=== PATIENT | female | born 1950 | race Hispanic/Latino ===

== ENCOUNTER 2018-01-07 11:01 | Emergency (ER) | payer OTHER, MEDICARE ==
[~2018-01-07 11:01] MED LIST: ALBU8.5H8 IH; ASPI-555 PO; ATOR20TA PO; INSLAN SQ; PANT40TA25 PO; stool softner; symbicort
[2018-01-07 11:39] LABS: BASOPHILS % (AUTO) 0.8 % (0.0-5.0); EOSINOPHILS % (AUTO) 0.7 % (0.0-8.0); HEMATOCRIT 41.4 % (36-48); LYMPHOCYTES % (AUTO) 25.8 % (21.0-51.0); MEAN CORPUSCULAR HEMOGLOBIN 26.8 pg (27.0-33.0); MEAN CORPUSCULAR HGB CONC 32.7 g/dL (32.0-36.0); MEAN CORPUSCULAR VOLUME 81.8 fL (79-99); MONOCYTES % (AUTO) 6.7 % (3.0-13.0); PLATELET COUNT (AUTO) 236 K/uL (130-400); RED BLOOD CELL COUNT(AUTO) 5.06 MIL/uL (4.00-5.50); RED CELL DISTRIBUTION WIDTH 16.2 % (11.0-15.5); WHITE BLOOD COUNT (AUTO) 10.8 K/uL (4.8-10.8)
[2018-01-07 12:02] LABS: ALBUMIN 3.4 g/dL (3.5-5.0); BILIRUBIN,TOTAL 0.4 mg/dL (0.2-1.0); CREATINE KINASE MB 0.8 ng/mL (0.5-3.6); CREATININE 0.8 mg/dL (0.5-1.5); POTASSIUM 3.6 mmol/L (3.5-5.1); TOTAL PROTEIN, SERUM 7.7 g/dL (6.0-8.3)
== END 2018-01-07 18:23 | disposition home or self-care (01) ==
LOC: EDH 11:01
DX: R07.9 Chest pain, unspecified (principal); R55 Syncope and collapse; E11.9 Type 2 diabetes mellitus without complications; E78.5 Hyperlipidemia, unspecified; K21.9 Gastro-esophageal reflux disease without esophagitis; I10 Essential (primary) hypertension; J45.909 Unspecified asthma, uncomplicated
CPT/HCPCS: 36415; 80053; 82550; 82553; 84484; 85025; 85378; 93005

== ENCOUNTER → 2018-12-20 | Outpatient (CLI) | payer OTHER, MEDICARE ==
[~2018-12-20] MED LIST changes: +ACET-2900 PO; -ALBU8.5H8 IH; +ALBUTEROL SULFATE IH; +ATOR10TA69 PO; -ATOR20TA PO; +CAND32TA9 PO; +DOCU100T PO; +FLUT1AER IH; -INSLAN SQ; +LATA7.5D OP; +OMEP40CA37 PO; -PANT40TA25 PO; -stool softner; -symbicort
== END | disposition home or self-care (01) ==
LOC: SHCH 12:34
PROVIDERS: ATTEND Internal Medicine Cardiovascular Disease
DX: I35.8 Other nonrheumatic aortic valve disorders (principal); I11.9 Hypertensive heart disease without heart failure
CPT/HCPCS: 93306

== ENCOUNTER → 2018-12-24 | Outpatient (CLI) | payer OTHER, MEDICARE ==
[~2018-12-24] VITALS: Ht 160 cm; Wt 69.9 kg
[~2018-12-24] MED LIST changes: +REGADENOSON 0.4 MG/5 ML PF SYG IVP SCH
== END | disposition home or self-care (01) ==
LOC: SHCH 07:35
PROVIDERS: ATTEND Internal Medicine Cardiovascular Disease
DX: R06.00 Dyspnea, unspecified (principal); R07.9 Chest pain, unspecified
CPT/HCPCS: 78452; 93017; 96374; A9500 ×2; J2785

== ENCOUNTER 2019-01-28 07:31 | Day surgery (SDC) | payer OTHER, MEDICARE ==
[2019-01-24 13:27] LABS: BASOPHILS % (AUTO) 0.9 % (0.0-5.0); EOSINOPHILS % (AUTO) 1.4 % (0.0-8.0); HEMATOCRIT 41.1 % (36-48); MEAN CORPUSCULAR HEMOGLOBIN 28.7 pg (27.0-33.0); MEAN CORPUSCULAR HGB CONC 32.4 g/dL (32.0-36.0); MEAN CORPUSCULAR VOLUME 88.4 fL (79-99); NEUTROPHILS % (AUTO) 70.7 % (40.0-77.0); PLATELET COUNT (AUTO) 215 K/uL (130-400); RED BLOOD CELL COUNT(AUTO) 4.65 MIL/uL (4.00-5.50); RED CELL DISTRIBUTION WIDTH 14.6 % (11.0-15.5)
[2019-01-24 13:30] LABS: APPEARANCE,URINE Cloudy (CLEAR); BILIRUBIN,URINE Negative (NEGATIVE); COLOR,URINE Yellow (YELLOW); GLUCOSE, URINE (UA) 250 mg/dL (NEGATIVE); KETONES,URINE Negative (NEGATIVE); LEUKOCYTE ESTERASE ,URINE Negative (NEGATIVE); NITRATE,URINE Negative (NEGATIVE); OCCULT BLOOD,URINE Negative (NEGATIVE); PROTEIN,URINE Negative (NEGATIVE)
[2019-01-24 13:31] VITALS: BP 122/58
[2019-01-24 13:38] LABS: CREATININE 0.9 mg/dL (0.5-1.5); POTASSIUM 4.4 mmol/L (3.5-5.1)
[2019-01-24 13:41] LABS: INR 0.97 (0.85-1.15); PROTHROMBIN TIME 10.2 SEC (9.6-11.6)
[2019-01-24 13:52] LABS: RBC,URINE 0-1 /HPF (0-1); WBC,URINE 0-1 /HPF (0-1)
[2019-01-24 13:53] LABS: BACTERIA,URINE Moderate /HPF (None Seen)
--- NOTE | 2019-01-27 12:05 | NUR ---
LABS ABNORMAL WBC REPORTED TO TOBIAS BROOKS, NO FURTHER ORDERS GIVEN. OK TO PROCEED WITH PROCEDURE
[2019-01-28] VITALS (15 sets, daily range): BP systolic 101–133; BP diastolic 43–83
[~2019-01-28] VITALS: Ht 157.5 cm; Wt 69.2 kg
[~2019-01-28 07:31] MED LIST changes: -ACET-2900 PO; -ALBUTEROL SULFATE IH; +DILT180C51 PO; -DOCU100T PO; -FLUT1AER IH; +INSLAN SQ; -LATA7.5D OP; -OMEP40CA37 PO; +RANI300C PO; -REGADENOSON 0.4 MG/5 ML PF SYG IVP SCH; +SODIUM CHLORIDE 0.9% 500ML 500 ML IV SCH; +TICA90TA PO
[2019-01-28] MEDS ORDERED: SODIUM CHLORIDE 0.9% 1000ML 1,000 ML IV ONE (07:50)
[2019-01-28] MEDS ORDERED: PANT20TA PO (09:08)
[2019-01-28] MEDS ORDERED: FLUT1AER IH ×2 (09:10→09:24)
[2019-01-28] MEDS ORDERED: AUD IH (09:29)
[2019-01-28] MEDS ORDERED: SODIUM BICARB 50MEQ 50ML VIAL ONE (11:55)
[2019-01-28] MEDS ORDERED: LIDOCAINE HCL 2% 20ML ONE (11:55)
[2019-01-28] MEDS ORDERED: NITROGLYCERIN 5 MG/ML 10 ML VIAL IV ONE (11:55)
[2019-01-28] MEDS ORDERED: IOHEXOL-350 50ML VIAL IV ONE (11:55)
[2019-01-28] MEDS ORDERED: IOHEXOL 350 MG/ML 100ML INFUS..BTL IV ONE (11:55)
[2019-01-28 12:33] LABS: APPEARANCE,URINE Clear (CLEAR); BILIRUBIN,URINE Negative (NEGATIVE); COLOR,URINE Yellow (YELLOW); GLUCOSE, URINE (UA) Negative (NEGATIVE); KETONES,URINE Negative (NEGATIVE); LEUKOCYTE ESTERASE ,URINE Negative (NEGATIVE); NITRATE,URINE Negative (NEGATIVE); OCCULT BLOOD,URINE Negative (NEGATIVE); PROTEIN,URINE Negative (NEGATIVE)
[2019-01-28] MEDS ORDERED: MIDAZOLAM HCL 1 MG/ML 2ML VIAL ONE (12:58)
[2019-01-28] MEDS ORDERED: MEPERIDINE-PF 25 MG/ML SYG ONE (12:58)
[2019-01-28] MEDS ORDERED: LEVOFLOXACIN 250 MG/D5W 50ML 50 ML IV STA (13:11)
[2019-01-28] MEDS ORDERED: SODIUM CHLORIDE 0.9% 1000ML 1,000 ML IV SCH (13:12)
[2019-01-28] MEDS ORDERED: GLUCAGON 1MG KIT 1 MG ML IM PRN (13:15)
[2019-01-28] MEDS ORDERED: DEXTROSE 50%-WATER 50 ML DISP.SYRIN IV PRN (13:15)
[2019-01-28] MEDS ORDERED: INSULIN HUMULIN R 100 UNIT/ML 3ML SQ SCH (16:30)
--- NOTE | 2019-01-28 17:30 | NUR ---
Pt asked for a sandwich. Blood sugar checked prior to eating. Pt's blood sugar noted to be 180. According to sliding scale pt was to receive 2 units of insulin. SPt stated they did not want the insulin but would take their Lantus this evening at home.
--- NOTE | 2019-01-28 18:20 | NUR ---
Pt discharged home, tolerating fluids/solids well, voided large amount prior to discharge, ambulating well. Pt denies any severe pain, nausea or dizziness. Prescription for antibiotic given to pt. Unable to give discharge instructions with spouse present as pt requested he not be called in. Pt denies any further questions. Site to right groin remains soft, non-tender s any evidence of bleeding.
== END 2019-01-28 18:20 | disposition home or self-care (01) ==
LOC: DAH 07:31
PROVIDERS: ATTEND Internal Medicine Cardiovascular Disease
DX: I25.118 Atherosclerotic heart disease of native coronary artery with other forms of angina pectoris (principal); E78.5 Hyperlipidemia, unspecified; E11.9 Type 2 diabetes mellitus without complications; I10 Essential (primary) hypertension; K21.9 Gastro-esophageal reflux disease without esophagitis; Z79.82 Long term (current) use of aspirin; Z79.899 Other long term (current) drug therapy; Z79.84 Long term (current) use of oral hypoglycemic drugs; Z79.4 Long term (current) use of insulin; Z95.5 Presence of coronary angioplasty implant and graft; Z90.49 Acquired absence of other specified parts of digestive tract; Z98.890 Other specified postprocedural states; Z82.49 Family history of ischemic heart disease and other diseases of the circulatory system; Z82.3 Family history of stroke; Z79.01 Long term (current) use of anticoagulants
CPT/HCPCS: 36415; 71045; 80048; 81001; 81003; 82948; 85025; 85610; 85730; 87088; 93005; 93458; 99156; A4606; C1760; C1894; J1644; J1956; J2175; J2250; J3490; J7030; Q9967

== ENCOUNTER 2019-03-17 05:27 | Day surgery (SDC) | payer OTHER, MEDICARE ==
[2019-03-15 07:49] VITALS: BP 116/57
[~2019-03-17] VITALS: Ht 160 cm; Wt 68.0 kg
[~2019-03-17 05:27] MED LIST changes: +FLUT1AER IH; +PANT20TA PO; -RANI300C PO; -SODIUM CHLORIDE 0.9% 500ML 500 ML IV SCH
[2019-03-17] MEDS ORDERED: SODIUM CHLORIDE 0.9% 1000ML 1,000 ML IV ONE (05:41)
[2019-03-17 06:16] VITALS: BP 142/72
--- NOTE | 2019-03-17 06:25 | NUR ---
NURSING PER PT SHE WAS GIVEN INSTRUCTIONS BY MD OFFICE AND NURSE TO STOP BRILINTA SO SHE STOPPED ON 03/13/19. NOTIFIED NANCY GREEN RN Addendum: 03/17/19 at 0628 by ABDOULAYE ELAINE RN Amended: Links added.
[2019-03-17] MEDS ORDERED: PROPOFOL 1000 MG/100 ML 100 ML IV ONE (07:07)
[2019-03-17] MEDS ORDERED: LIDOCAINE HCL-MPF 2% 5ML VIAL ONE (07:07)
[2019-03-17 07:44] VITALS: BP 104/49
[2019-03-17 07:49] VITALS: BP 124/52
[2019-03-17 07:54] VITALS: BP 131/55
[2019-03-17 07:59] VITALS: BP 128/55
--- NOTE | 2019-03-17 08:15 | NUR ---
dc pt dc home via wc, no distress noted. denied any pain or discomforts accompanied by family,
== END 2019-03-17 08:15 | disposition home or self-care (01) ==
LOC: DAH 05:27 → ENDO 05:27
PROVIDERS: ATTEND Internal Medicine
DX: K63.5 Polyp of colon (principal); K62.1 Rectal polyp; K44.9 Diaphragmatic hernia without obstruction or gangrene; K31.89 Other diseases of stomach and duodenum; K31.7 Polyp of stomach and duodenum; K64.0 First degree hemorrhoids; K57.30 Diverticulosis of large intestine without perforation or abscess without bleeding; I25.10 Atherosclerotic heart disease of native coronary artery without angina pectoris; I10 Essential (primary) hypertension; E78.00 Pure hypercholesterolemia, unspecified; F41.9 Anxiety disorder, unspecified; M19.90 Unspecified osteoarthritis, unspecified site; E11.9 Type 2 diabetes mellitus without complications; J45.909 Unspecified asthma, uncomplicated; K59.01 Slow transit constipation; Z86.010 Personal history of colon polyps; Z79.4 Long term (current) use of insulin; Z79.899 Other long term (current) drug therapy; Z79.82 Long term (current) use of aspirin; Z95.818 Presence of other cardiac implants and grafts; Z98.890 Other specified postprocedural states; Z82.49 Family history of ischemic heart disease and other diseases of the circulatory system; Z83.3 Family history of diabetes mellitus
CPT/HCPCS: 43239; 45380; 45385; 82948 ×2; 88305; A4606; J2704; J3490; J7030

== ENCOUNTER → 2019-11-12 | Outpatient (CLI) | payer OTHER, MEDICARE | END | disposition home or self-care (01) | LOC: SHCH 10:35 | PROVIDERS: ATTEND Internal Medicine Cardiovascular Disease | DX: R09.89 Other specified symptoms and signs involving the circulatory and respiratory systems (principal) | CPT/HCPCS: 93880 ==

== ENCOUNTER → 2020-10-13 | Outpatient (CLI) | payer OTHER, MEDICARE ==
[~2020-10-13] MED LIST changes: -ASPI-555 PO; +ASPI-556 PO
== END | disposition home or self-care (01) ==
LOC: SHCH 13:59
PROVIDERS: ATTEND Internal Medicine Cardiovascular Disease
DX: R01.1 Cardiac murmur, unspecified (principal); I10 Essential (primary) hypertension
CPT/HCPCS: 93306; 93356

== ENCOUNTER 2021-12-20 11:13 | Emergency (ER) | payer OTHER, MEDICARE ==
[~2021-12-20] VITALS: Ht 160 cm; Wt 66.7 kg
[~2021-12-20 11:13] MED LIST changes: +CAND32TA22 PO; -CAND32TA9 PO
[2021-12-20 12:46] LABS: BASOPHILS % (AUTO) 0.8 % (0.0-5.0); EOSINOPHILS % (AUTO) 1.6 % (0.0-8.0); HEMATOCRIT 41.4 % (36-48); LYMPHOCYTES % (AUTO) 19.2 % (21.0-51.0); MEAN CORPUSCULAR HEMOGLOBIN 29.3 pg (27.0-33.0); MEAN CORPUSCULAR HGB CONC 33.1 g/dL (32.0-36.0); MEAN CORPUSCULAR VOLUME 88.7 fL (79-99); MONOCYTES % (AUTO) 6.2 % (3.0-13.0); NEUTROPHILS % (AUTO) 71.8 % (40.0-77.0); PLATELET COUNT (AUTO) 204 K/uL (130-400); RED BLOOD CELL COUNT(AUTO) 4.67 MIL/uL (4.00-5.50); RED CELL DISTRIBUTION WIDTH 13.1 % (11.0-15.5)
[2021-12-20 13:02] LABS: CREATININE 0.8 mg/dL (0.5-1.5); POTASSIUM 3.9 mmol/L (3.5-5.1)
[2021-12-20 13:05] LABS: ALBUMIN 3.6 g/dL (3.5-5.0); BILIRUBIN,TOTAL 0.3 mg/dL (0.2-1.0); TOTAL PROTEIN, SERUM 7.7 g/dL (6.0-8.3)
[2021-12-20 13:13] LABS: APPEARANCE,URINE Clear (CLEAR); BILIRUBIN,URINE Negative (NEGATIVE); COLOR,URINE Yellow (YELLOW); GLUCOSE, URINE (UA) 250 mg/dL (NEGATIVE); KETONES,URINE Negative (NEGATIVE); LEUKOCYTE ESTERASE ,URINE Small (NEGATIVE); NITRATE,URINE Negative (NEGATIVE); OCCULT BLOOD,URINE Negative (NEGATIVE); PH,URINE 5.5 (5.0-8.0); PROTEIN,URINE Negative (NEGATIVE)
[2021-12-20 13:19] LABS: B-TYPE NATRIURETIC PEPTIDE 19 pg/mL (0-100)
[2021-12-20 13:20] LABS: BACTERIA,URINE Rare /HPF (None Seen); RBC,URINE 0-1 /HPF (0-1); SQUAMOUS EPITHELIAL CELL,UR Few /HPF (0-2)
[2021-12-20] MEDS ORDERED: ACETAMINOPHEN 500 MG TABLET PO ONE (13:30)
[2021-12-20] MEDS ORDERED: ASPIRIN 81 MG EC TAB PO ONE (13:30)
[2021-12-20 14:50] VITALS: BP 128/50
[2021-12-21] MEDS ORDERED: PANT40GR PO (00:02)
[2021-12-21] MEDS ORDERED: CAND32TA22 PO (00:02)
[2021-12-21] MEDS ORDERED: DICY10CA13 PO (00:02)
[2021-12-21] MEDS ORDERED: INSU100V37 SQ (05:21)
[2021-12-21] MEDS ORDERED: FLUT1AER IH (05:21)
== END 2021-12-20 14:51 | disposition home or self-care (01) ==
LOC: EDH 11:13
DX: R07.89 Other chest pain (principal); J45.909 Unspecified asthma, uncomplicated; I25.10 Atherosclerotic heart disease of native coronary artery without angina pectoris; E11.9 Type 2 diabetes mellitus without complications; I10 Essential (primary) hypertension; Z79.899 Other long term (current) drug therapy; Z79.4 Long term (current) use of insulin; Z79.82 Long term (current) use of aspirin; Z90.49 Acquired absence of other specified parts of digestive tract; Z98.890 Other specified postprocedural states
CPT/HCPCS: 36415; 71045; 80053; 81001; 82948; 83880; 84484; 85025; 85378; 93005

== ENCOUNTER 2022-04-19 09:48 | Emergency (ER) | payer MEDICARE, OTHER ==
[~2022-04-19] VITALS: Ht 160 cm; Wt 67.6 kg
[~2022-04-19 09:48] MED LIST changes: +DICY10CA13 PO; -INSLAN SQ; +INSU100V37 SQ; -PANT20TA PO; +PANT40GR PO
[2022-04-19 10:18] LABS: BASOPHILS % (AUTO) 0.9 % (0.0-5.0); EOSINOPHILS % (AUTO) 1.5 % (0.0-8.0); HEMATOCRIT 38.2 % (36-48); LYMPHOCYTES % (AUTO) 21.3 % (21.0-51.0); MEAN CORPUSCULAR HEMOGLOBIN 29.8 pg (27.0-33.0); MEAN CORPUSCULAR HGB CONC 34.3 g/dL (32.0-36.0); MEAN CORPUSCULAR VOLUME 86.8 fL (79-99); MONOCYTES % (AUTO) 7.7 % (3.0-13.0); NEUTROPHILS % (AUTO) 68.1 % (40.0-77.0); PLATELET COUNT (AUTO) 206 K/uL (130-400); RED CELL DISTRIBUTION WIDTH 12.8 % (11.0-15.5); WHITE BLOOD COUNT (AUTO) 7.9 K/uL (4.8-10.8)
[2022-04-19 10:30] LABS: CREATININE 0.8 mg/dL (0.5-1.5); POTASSIUM 3.6 mmol/L (3.5-5.1)
[2022-04-19 10:35] LABS: ALBUMIN 3.2 g/dL (3.5-5.0); TOTAL PROTEIN, SERUM 6.8 g/dL (6.0-8.3)
[2022-04-19] MEDS ORDERED: KETOROLAC 30MG VIAL (30MG/ML) IVP STA (10:37)
[2022-04-19 10:54] LABS: APPEARANCE,URINE CLEAR (CLEAR); BILIRUBIN,URINE NEGATIVE (NEGATIVE); COLOR,URINE LIGHT-YELLOW (YELLOW); GLUCOSE, URINE (UA) >=1000 mg/dL (NEGATIVE); KETONES,URINE NEGATIVE (NEGATIVE); LEUKOCYTE ESTERASE ,URINE NEGATIVE Leu/uL (NEGATIVE); NITRATE,URINE NEGATIVE (NEGATIVE); OCCULT BLOOD,URINE NEGATIVE (NEGATIVE); PROTEIN,URINE NEGATIVE (NEGATIVE); UROBILINOGEN,URINE 0.2 mg/dL (0.2-1.0)
[2022-04-19 10:56] LABS: BACTERIA,URINE RARE /HPF (None Seen); MUCUS,URINE RARE LPF (None Seen); RBC,URINE 0-1 /HPF (0-1); SQUAMOUS EPITHELIAL CELL,UR FEW /HPF (0-2); WBC,URINE 0-1 /HPF (0-1)
[2022-04-19 11:33] VITALS: BP 110/54
== END 2022-04-19 12:00 | disposition home or self-care (01) ==
LOC: EDH 09:48
DX: M94.0 Chondrocostal junction syndrome [Tietze] (principal); E11.9 Type 2 diabetes mellitus without complications; I10 Essential (primary) hypertension; J45.909 Unspecified asthma, uncomplicated; Z79.4 Long term (current) use of insulin; Z79.51 Long term (current) use of inhaled steroids; Z79.82 Long term (current) use of aspirin; Z90.49 Acquired absence of other specified parts of digestive tract; Z95.5 Presence of coronary angioplasty implant and graft
CPT/HCPCS: 99285; 96374; 71045; 84484; 80053; 83880; 85025; 81001; 36415; 93005; J1885

== ENCOUNTER → 2023-09-26 | Outpatient (CLI) | payer OTHER ==
[~2023-09-26] MED LIST changes: -DICY10CA13 PO; +DICY10CA2 PO
== END | disposition home or self-care (01) ==
LOC: SHCH 09:30
PROVIDERS: ATTEND Internal Medicine Cardiovascular Disease
DX: I25.119 Atherosclerotic heart disease of native coronary artery with unspecified angina pectoris (principal)
CPT/HCPCS: 93306

== ENCOUNTER → 2023-10-01 | Outpatient (CLI) | payer OTHER ==
[2023-10-01] MEDS: REGADENOSON 0.4 MG/5 ML PF SYG IVP ONE (14:46)
== END | disposition home or self-care (01) ==
LOC: SHCH 07:35
PROVIDERS: ATTEND Internal Medicine Cardiovascular Disease
DX: I25.119 Atherosclerotic heart disease of native coronary artery with unspecified angina pectoris (principal)
CPT/HCPCS: 78452; 93017; J2785; A9500 ×2; 96374

== ENCOUNTER → 2023-11-20 | Outpatient (CLI) | payer OTHER | END | disposition home or self-care (01) | LOC: RAH 13:05 | PROVIDERS: ATTEND Family Medicine | DX: Z13.820 Encounter for screening for osteoporosis (principal); M85.89 Other specified disorders of bone density and structure, multiple sites | CPT/HCPCS: 77080 ==

== ENCOUNTER → 2024-02-15 | Outpatient (CLI) | payer OTHER, MEDICARE | END | disposition home or self-care (01) | LOC: RAH 09:48 | PROVIDERS: ATTEND Family Medicine | DX: N28.1 Cyst of kidney, acquired (principal); R10.13 Epigastric pain; Z90.49 Acquired absence of other specified parts of digestive tract | CPT/HCPCS: 76700 ==

== ENCOUNTER → 2024-08-11 | Outpatient (CLI) | payer OTHER, MEDICARE ==
--- NOTE | 2024-08-14 09:42 | HMCSR ---
APPROVED REPORT Laterality: Bilateral Indications i65.23 Doppler Spectral Velocity Analysis PSV / EDVPSV / EDV ECA (R) 113 / cm/sECA (L) 105 / cm/s dICA (R) 74 / 10 cm/sdICA (L) 68 / 14 cm/s Payton (R) 91 / 20 cm/smICA (L) 85 / 19 cm/s pICA (R) 74 / 15 cm/spICA (L) 73 / 15 cm/s dCCA (R) 74 / 14 cm/sdCCA (L) 74 / 10 cm/s mCCA (R) 93 / 13 cm/smCCA (L) 97 / 11 cm/s pCCA (R) 91 / 11 cm/spCCA (L) 141 / 15 cm/s Vert (R) 56 / cm/sVert (L) 51 / cm/s Subl. (R) 162 / cm/sSubl. (L) 209 / cm/s ICA/CCA 0.98ICA/CCA 0.60 Technologist Impression Minimal plaque noted in the bilateral carotids, without hemodynamic significance. Bilateral vertebral arteries appear antegrade. Conclusion Minimal plaque noted in the bilateral carotids, without hemodynamic significance. Bilateral vertebral arteries appear antegrade. Conclusion Minimal plaque noted in the bilateral carotids, without hemodynamic significance. Bilateral vertebral arteries appear antegrade.
== END | disposition home or self-care (01) ==
LOC: SHCH 12:12
PROVIDERS: ATTEND Internal Medicine Cardiovascular Disease
DX: I65.23 Occlusion and stenosis of bilateral carotid arteries (principal)
CPT/HCPCS: 93880

== ENCOUNTER 2024-11-17 14:45 | Emergency (ER) | payer OTHER, MEDICARE ==
[~2024-11-17] VITALS: Ht 160 cm; Wt 63.0 kg
[~2024-11-17 14:45] MED LIST changes: +DICY-20 PO; -DICY10CA2 PO
[2024-11-17 14:53] VITALS: TEMP 99.1
--- NOTE | 2024-11-17 14:55 | ERN ---
ED Note History of Present Illness Stated Complaint: PALPATATIONS, ARM PAIN Chief Complaint: Palpitations Time Seen by MD: 14:47 Dictation: PATIENT IS A 74-YEAR-OLD FEMALE COMING IN TODAY WITH COMPLAINTS OF BENDING OVER APPROXIMATE 30 MINUTES PRIOR TO ARRIVAL AND STATES HER HEART STARTED RACING REAL FAST. SHE STATES SHE WAS HAVING SOME PALPITATIONS IN HER THROAT. NO SHORTNESS A BREATH NO ARM PAIN NO JAW PAIN NO BACK PAIN. SHE STATES SHE HAS A HISTORY OF PALPITATIONS, CARDIAC STENTS X2, PATIENT OF . NO PAIN OR PRESSURE AT THIS TIME. Allergies: Coded Allergies: No Known Drug Allergies (Unverified Allergy, Unknown, 12/22/13) Home Meds Active Scripts Magnesium Oxide/Mag Aa Chelate (Magnesium 300 mg Capsule) 300 Mg Capsule, 300 MG PO DAILY for 10 Days, #10 CAP 0 Refills Prov:PADMINI BARRETO EXTRUDER OPERATOR MULTIPLE 11/17/24 Reported Medications Fluticasone/Vilanterol (Breo Ellipta 100-25 Mcg INH) 1 Each Aer.pow.ba, 1 EACH IH DAILY 12/21/21 Insulin Degludec (Tresiba) 100 Unit/1 Ml Vial, 50 UNIT SQ DAILY, VIAL 12/21/21 Candesartan Cilexetil (Candesartan Cilexetil) 32 Mg Tablet, 32 MG PO QODAY, TAB 12/21/21 Dicyclomine HCl (Dicyclomine HCl) 10 Mg Capsule, 10 MG PO TIDAC for abdominal discomfort, CAP 12/21/21 Pantoprazole Sodium (Pantoprazole Sodium) 40 Mg Granpkt.dr, 40 MG PO DAILY, PACK 12/21/21 Diltiazem HCl (Cartia Xt) 180 Mg Cap.er.24h, 180 MG PO DAILY, CAPSULE.DR 01/24/19 Ticagrelor (Brilinta) 90 Mg Tablet, 90 MG PO BID, TAB 01/24/19 Candesartan Cilexetil (Candesartan Cilexetil) 32 Mg Tablet, 32 MG PO QODAY, TAB 02/04/18 Atorvastatin Calcium (Atorvastatin Calcium) 10 Mg Tablet, 10 MG PO DAILY, TAB 02/04/18 Aspirin (Aspir 81) 81 Mg Tablet., 81 MG PO DAILY, TAB 10/23/14 Past Medical History Past Medical History: Asthma, Diabetes-Type II, High Cholesterol, Heart Disease, Hypertension Surgical History: Hysterectomy, Cholecystectomy Surgical History Other: HEART STENT Social History: Negative History: Not Applicable RN Note Reviewed/Agreed w/PFSH: Yes Review of System Dictation CONSTITUTIONAL: Negative except for HPI HEAD/FACE: Negative except for HPI EENT: Negative except for HPI RESPIRATORY: Negative except for HPI palpitations GASTROINTESTINAL/ABDOMINAL: Negative except for HPI GENITOURINARY: Negative except for HPI MUSCULOSKELETAL: Negative except for HPI INTEGUMENTARY: Negative except for HPI NEUROLOGICAL/PSYCH: Negative except for HPI HEMATOLOGIC/LYMPHATIC: Negative except for HPI All Systems Negative, Except as noted above. 13 point review of systems assessed and all negative except for above. Initial Vital Sign VS Vital Signs Date Time Temp Pulse Resp B/P (MAP) Pulse Ox O2 Delivery O2 Flow Rate FiO2 11/17/24 14:53 99.1 95 16 186/93 98 Room Air 0 11/17/24 15:04 21 Physical Exam Dictation Vital Signs reviewed General Appearance: Alert, oriented x 3, no acute distress, well developed, nourished. Head and Face: non-traumatic. Eyes: PERRL, pink conjunctivas, eyelid no trauma, anterior chamber with arcus senilis. Ears: Pinnas intact and no signs of trauma or erythema ear canals clear and no discharge TM no erythema Nose: No discharge, no bleeding. Oropharynx: Mouth normal, tongue pink, pharynx clear,no erythema, tonsils no exudates, no abscesses noted, mucous membrane moist Neck: Supple, non-tender, no thyromegaly, no masses, no JVD, no bruits Breast:Deferred Chest:No tenderness, no crepitus, no paradoxical movement, no retractions Lungs:Clear, well-ventilated, symmetric, no rales, no wheezing, no rhonchi, no stridor, good breath sounds bilaterally Heart: Regular rate, regular rhythm, no murmur, no gallops Vascular: no peripheral edema, Abdomen: Soft, positive bowel sounds, nondistended, no guarding, nontender, no rebound, no masses no hepatomegaly, no splenomegaly, no Hamilton's sign, no hernias. Rectal: Deferred Genital: Deferred Neurological: Normal speech, motor function intact, sensory function intact Musculoskeletal: Neck nontender, full range of motion, back nontender, full range of motion, Extremities: nontender, full range of motion Skin: Color pink, dry, no turgor, no rash, no lacerations, no abrasions, no contusions. Lymphatic: Deferred Results (Laboratory/Radiology) Laboratory/Radiology Laboratory Tests Test 11/17/24 15:34 11/17/24 17:28 White Blood Count 8.6 K/uL (4.8-10.8) Red Blood Count 4.44 MIL/uL (4.00-5.50) Hemoglobin 13.6 g/dL (12.0-16.0) Hematocrit 40.0 % (36-48) Mean Corpuscular Volume 90.1 fL (79-99) Mean Corpuscular Hemoglobin 30.6 pg (27.0-33.0) Mean Corpuscular Hemoglobin Concent 34.0 g/dL (32.0-36.0) Red Cell Distribution Width 12.6 % (11.0-15.5) Platelet Count 203 K/uL (130-400) Mean Platelet Volume 11.6 fL (7.5-10.5) H Immature Granulocyte % (Auto) 0.6 % (0-1) Neutrophils (%) (Auto) 69.6 % (40.0-77.0) Lymphocytes (%) (Auto) 20.3 % (21.0-51.0) L Monocytes (%) (Auto) 7.1 % (3.0-13.0) Eosinophils (%) (Auto) 1.6 % (0.0-8.0) Basophils (%) (Auto) 0.8 % (0.0-5.0) Neutrophils # (Auto) 6.0 K/uL (1.8-7.7) Lymphocytes # (Auto) 1.7 K/uL (1.0-4.8) Monocytes # (Auto) 0.6 K/uL (0.1-1.0) Eosinophils # (Auto) 0.14 K/uL (0.00-0.70) Basophils # (Auto) 0.07 K/uL (0.00-0.20) Absolute Immature Granulocyte (auto 0.05 K/uL (0-1) Nucleated Red Blood Cells 0.0 % (0.0-0.19) Sodium Level 138 mmol/L (136-145) Potassium Level 3.9 mmol/L (3.5-5.1) Chloride Level 105 mmol/L (101-111) Carbon Dioxide Level 31 mmol/L (21-32) Blood Urea Nitrogen 11 mg/dL (7-18) Creatinine 0.8 mg/dL (0.5-1.0) Glomerular Filtration Rate Calc 76 mL/min (>90) Random Glucose 247 mg/dL (70-105) H Total Calcium 9.1 mg/dL (8.5-10.1) Magnesium Level 1.70 mg/dL (1.80-2.40) L Troponin I High Sensitivity 8 ng/L (4-50) 10 ng/L (4-50) B-Type Natriuretic Peptide 28 pg/mL (0-100) Labs Reviewed?: Yes EKG Comment: EKG sinus arrhythmia with left ventricular hypertrophy/or rate 81/axis normal 1810/2ND EKG SINUS RHYTHM/HEART RATE 63/AXIS NORMAL/OCCASIONAL PACS HIGH SENSITIVITY TROPONIN EIGHT HEART SCORE IS THREE ED Course ED Course Orders Procedure Category Date Status Time Cbc With Differential LAB 11/17/24 Complete 14:54 B-Type Natriuretic LAB 11/17/24 Complete Peptide 14:54 Chest 1vw RAD 11/17/24 Resulted 14:54 12 Lead Ekg Tracing- EKG 11/17/24 Logged Technical 14:54 Magnesium LAB 11/17/24 Complete 14:54 Troponin I High LAB 11/17/24 Complete Sensitivity 14:54 Basic Metabolic Panel LAB 11/17/24 Complete 14:54 12 Lead Ekg Tracing- EKG 11/17/24 Logged Technical 17:18 Troponin I High LAB 11/17/24 Complete Sensitivity 17:18 Magnesium Oxide PHA 11/17/24 Complete (Mag-Ox) 17:30 Current Medications Medications (Trade) Dose Ordered Sig/Airam Route PRN Reason Start Time Stop Time Status Last Admin Dose Admin Magnesium Oxide (Mag-Ox) 400 mg ONCE ONCE PO 11/17/24 17:30 11/17/24 17:31 DC 11/17/24 17:44 Vital Signs Date Time Temp Pulse Resp B/P (MAP) Pulse Ox O2 Delivery O2 Flow Rate FiO2 11/17/24 17:49 81 16 158/74 99 Room Air* 0 11/17/24 15:51 72 16 156/67 98 Room Air* 0 11/17/24 15:04 91 16 167/69 98 Room Air* 0 11/17/24 14:53 99.1 95 16 186/93 98 Room Air 0 1810/SPOKE WITH PATIENT AT LENGTH REGARDING FINDINGS OF CARDIAC WORKUP SHE DOES NOT WANT TO BE ADMITTED TO THE HOSPITAL SHE STATES SHE WILL FOLLOW UP WITH HER PRIMARY CARE DOCTOR IN 1-2 DAYS AND WE WILL BE COMPLIANT WITH MAGNESIUM REPLACEMENT. NO CHEST PAIN AT THIS TIME. ALL QUESTIONS ANSWERED HEART Score Response (Comments) Value EKG: Repolarization changes 1 Age: > 65yrs (+2) 2 Risk Factors: 3+ risk factors (+2) 2 Initial Troponin: Normal limit (0) 0 Total 5 Medical Decision Making MDM MDM: DIFFERENTIAL DIAGNOSIS: ACS/AMI/ELECTROLYTE IMBALANCE/DEHYDRATION PNEUMONIA/BRONCHITIS/ANXIETY RATIONALE: TESTS CONSIDERED AND ORDERED SECONDARY TO SHARED DECISION MAKING INCLUDE: EKG/LABS/RADIOLOGY PREVIOUS OUTSIDE RECORDS REVIEWED: OLD ER VISITS. RISK OF COMPLICATION AND/OR MORBIDITY OR MORTALITY OF PATIENT MANAGEMENT: NONE MEDICATIONS-PER MEDICATION RECONCILIATION NEED FOR HOSPITALIZATION: PATIENT DOES NOT MEET CRITERIA FOR HOSPITALIZATION. NO, PATIENT REFUSED NEED FOR EMERGENCY MAJOR/MINOR SURGERY: NO THERE ARE NO SOCIAL CONCERNS WITH THIS PATIENT. PRESCRIPTION DRUG MANAGEMENT MAGNESIUM PRESCRIPTIONS WILL INCLUDE SYMPTOMATIC CARE PATIENT'S PRIOR EXTERNAL MEDICAL RECORDS FROM OTHER ER VISITS WERE REVIEWED BY ME INDICATED. PRIOR TESTING AND RESULTS FROM PREVIOUS VISITS WERE REVIEWED. PRIOR TESTS WERE TAKEN INTO ACCOUNT WITH MEDICAL DECISION MAKING AND RESOURCE UTILIZATION, INDEPENDENT HISTORIAN/HISTORIANS WERE USED TO OBTAIN COMPLETE MEDICAL HISTORY. I INDEPENDENTLY INTERPRETED THE TEST THAT WERE PERFORMED, RESULTS WERE REVIEWED BY ME AND CONSIDERED FINDINGS ON RADIOLOGY IF ORDERED. MEDICAL MANAGEMENT AND EXAMINATION INTERPRETATION DISCUSSIONS WERE HAD BY ME WITH OTHER QUALIFIED HEALTHCARE PROFESSIONALS INDICATED FOR THE PATIENT'S CARE. DX & DISP Disposition: Discharge Departure Impression: Primary Impression: Heart palpitations Additional Impressions: Hypomagnesemia, Uncontrolled diabetes mellitus Condition: Stable Scripts Magnesium Oxide/Mag Aa Chelate (Magnesium 300 mg Capsule) 300 Mg Capsule 300 MG PO DAILY for 10 Days, #10 CAP 0 Refills Prov: PADMINI BARRETO EXTRUDER OPERATOR MULTIPLE 11/17/24 Additional Instructions: FOLLOW-UP WITH PRIMARY CARE PROVIDER IN 1 TO 2 DAYS. TAKE MEDICATIONS DIRECTED HERE IN THE EMERGENCY ROOM. OKAY TO CONTINUE HOME MEDICATIONS UNLESS OTHERWISE DISCUSSED DURING YOUR VISIT IN THE EMERGENCY ROOM TODAY. RETURN TO YOUR NEAREST EMERGENCY ROOM IF SYMPTOMS WORSEN OR IF THERE IS NO IMPROVEMENT. CALL 911 IF YOU NEED IMMEDIATE ASSISTANCE. TAKE TYLENOL OR MOTRIN [id number] NEEDED AND IF NO CONTRAINDICATIONS ARE PRESENT. INCREASE ORAL HYDRATION. A WOUND CULTURE OR URINE CULTURE WAS ORDERED HERE IN THE EMERGENCY ROOM DEPARTMENT PLEASE FOLLOW-UP WITH PRIMARY CARE PROVIDER AND ADVISE THEM TO GET REPEAT PORTS FROM OUR FACILITY. IF YOU HAD ANY VIJAYA WRAP/SPLINTS THAT WERE APPLIED HERE, PLEASE DO NOT REMOVE THEM UNTIL YOU SEE YOUR PRIMARY CARE OR SPECIALTY. TAKE MAGNESIUM DIRECTED UNTIL GONE. , FOLLOW UP WITH YOUR PRIMARY CARE DOCTOR IN 1-2 DAYS NEEDED. Referrals: NUVIA GONZALEZ M.D. (PCP) Time of Disposition: 18:12 I have reviewed the case, and I agree with, Diagnosis and Plan PADMINI BARRETO NP November 17, 2024 14:55 LAMBERTO KIRBY DO November 17, 2024 18:45
[2024-11-17 15:41] LABS: BASOPHILS # (AUTO) 0.07 K/uL (0.00-0.20); BASOPHILS % (AUTO) 0.8 % (0.0-5.0); EOSINOPHILS # (AUTO) 0.14 K/uL (0.00-0.70); EOSINOPHILS % (AUTO) 1.6 % (0.0-8.0); IMMATURE GRANULOCYTE ABSOLUTE 0.05 K/uL (0-1); LYMPHOCYTES # (AUTO) 1.7 K/uL (1.0-4.8); LYMPHOCYTES % (AUTO) 20.3 % (21.0-51.0); MEAN CORPUSCULAR HEMOGLOBIN 30.6 pg (27.0-33.0); MEAN CORPUSCULAR VOLUME 90.1 fL (79-99); MONOCYTES # (AUTO) 0.6 K/uL (0.1-1.0); MONOCYTES % (AUTO) 7.1 % (3.0-13.0); NEUTROPHILS % (AUTO) 69.6 % (40.0-77.0); PLATELET COUNT (AUTO) 203 K/uL (130-400); RED BLOOD CELL COUNT(AUTO) 4.44 MIL/uL (4.00-5.50); RED CELL DISTRIBUTION WIDTH 12.6 % (11.0-15.5); WHITE BLOOD COUNT (AUTO) 8.6 K/uL (4.8-10.8)
[2024-11-17 15:51] LABS: CREATININE 0.8 mg/dL (0.5-1.0); MAGNESIUM 1.7 mg/dL (1.80-2.40); POTASSIUM 3.9 mmol/L (3.5-5.1)
[2024-11-17 16:10] LABS: B-TYPE NATRIURETIC PEPTIDE 28 pg/mL (0-100)
--- NOTE | 2024-11-17 16:17 | HMCIMG ---
Exam Type: CHEST 1VW Clinical Information: PALPITATION/CHEST PAIN Comparison: None Findings: The lungs are clear of infiltrates. The heart is normal in size. The bony and soft tissue structures of the chest are unremarkable. Impression: Clear lungs.
[2024-11-17] MEDS: MAGNESIUM OXIDE 400 MG TABLET PO ONE (17:44)
[2024-11-17 17:49] VITALS: BP 158/74; PULSE 81; RESP 16; O2SAT 99
[2024-11-17] MEDS ORDERED: MAGN300C PO (18:12)
--- NOTE | 2024-11-18 06:34 | EKG ---
[facility] Test Date: 2024-11-17 Test Time: 17:51:11 Pat Name: ALMAS WILSON Department: ED Room: Gender: F Routeman: [id number] : 1950 Requested By: PADMINI BARRETO Order Number: [id number] Reading MD: Meng Fleming Measurements Intervals [place] Rate: 63 P: 30 WY: 147 QRS: -20 QRSD: 96 T: 29 QT: 391 QTc: 397 Interpretive Statements Sinus rhythm Atrial premature complex Compared to ECG 04/19/2022 10:09:44 Atrial premature complex(es) now present Sinus arrhythmia no longer present Left ventricular hypertrophy no longer present Electronically Signed On 11-18-2024 16:18:17 CDT by Meng Fleming Please click the below link to view image of tracing.
--- NOTE | 2024-11-18 06:34 | EKG ---
[facility] Test Date: 2024-11-17 Test Time: 15:04:02 Pat Name: ALMAS WILSON Department: ED Room: Gender: F Ironer: [id number] : 1950 Requested By: PADMINI BARRETO Order Number: [id number] Reading MD: Meng Fleming Measurements Intervals [place] Rate: 81 P: 35 SC: 157 QRS: -26 QRSD: 92 T: 54 QT: 385 QTc: 449 Interpretive Statements Sinus arrhythmia Consider left ventricular hypertrophy Compared to ECG 04/19/2022 10:09:44 Sinus rhythm no longer present Electronically Signed On 11-18-2024 16:18:04 CDT by Meng Fleming Please click the below link to view image of tracing.
== END 2024-11-17 18:45 | disposition home or self-care (01) ==
LOC: EDH 14:45
DX: R00.2 Palpitations (principal); E83.42 Hypomagnesemia; E11.65 Type 2 diabetes mellitus with hyperglycemia; E78.00 Pure hypercholesterolemia, unspecified; E11.9 Type 2 diabetes mellitus without complications; I11.9 Hypertensive heart disease without heart failure; J45.909 Unspecified asthma, uncomplicated; Z79.02 Long term (current) use of antithrombotics/antiplatelets; Z79.4 Long term (current) use of insulin; Z79.51 Long term (current) use of inhaled steroids; Z79.82 Long term (current) use of aspirin; Z79.899 Other long term (current) drug therapy; Z90.49 Acquired absence of other specified parts of digestive tract; Z90.710 Acquired absence of both cervix and uterus; Z95.5 Presence of coronary angioplasty implant and graft
CPT/HCPCS: 36415; 71045; 80048; 83735; 83880; 84484; 85025; 93005; 99285